=== PATIENT | male | born 1965 | race Caucasian/White ===

== ENCOUNTER 2022-09-08 15:45 | Outpatient (OUT) | payer OTHER, SELFPAY ==
[2022-09-08 16:43] LABS: Free T4 1.43 ng/dL (0.76-1.46)
[2022-09-08 16:56] LABS: Free T3 2.86 pg/mL (2.18-3.98); Thyroid Stimulating Hormone 1.573 uIU/mL (0.358-3.740)
== END 2022-09-08 15:46 | disposition home or self-care (01) ==
LOC: LAB 15:50
PROVIDERS: Visit Provider Internal Medicine
DX: E89.0 Postprocedural hypothyroidism (principal)
CPT/HCPCS: 36415; 84439; 84443; 84481